=== PATIENT | male | born 1990 | race Caucasian/White ===

== ENCOUNTER 2023-11-23 06:48 | Emergency (ER) | payer SELFPAY ==
[2023-11-23 06:55] VITALS: RESP 20; BMI 28.0
[2023-11-23 08:35] LABS: THROAT:GRP A STREP NOT DETECTED (NOTDETECTED)
[2023-11-23] MEDS ORDERED: DEXAMETHASONE SOD PHOSPHATE 10 MG/1 ML VIAL ONE (08:52)
[2023-11-23] MEDS ORDERED: ACETAMINOPHEN INJECTION 100 ML ONE (08:52)
[2023-11-23 09:05] LABS: BASO % 0.6 % (0-2.0); EOS % 0.8 % (0-4.5); HEMATOCRIT 49.8 % (35.4-49); HEMOGLOBIN 16.8 GM/dL (11.7-16.9); LYMPH % 11.1 % (8-40); MCH 28.1 pg (25.7-33.7); MCHC 33.8 g/dl (32.0-35.9); MEAN CELL VOLUME 83.3 fl (80-96); MEAN PLT VOLUME 8.8 fl (7.5-11.1); MONO % 8.9 % (3.8-10.2); NEUT % 78.6 % (42.8-82.8); PLATELET COUNT 260 10^3/uL (134-434); RBC 5.98 M/mm3 (4.00-5.60); RDW 13.6 % (11.9-15.9); WHITE BLOOD COUNT 13.8 K/mm3 (4.0-10.0)
[2023-11-23] MEDS: SODIUM CHLORIDE 0.9% 500 ML INFUS.BAG IV ONE (09:05)
[2023-11-23] MEDS: DEXAMETHASONE SOD PHOSPHATE 10 MG/1 ML VIAL IVPUSH ONE (09:05)
[2023-11-23] MEDS: ACETAMINOPHEN 1000 MG/100 ML BAG IVPB ONE (09:06)
[2023-11-23 09:09] LABS: INR 1.06 (0.83-1.09)
[2023-11-23 09:11] LABS: ACTIVATED PTT 28.2 SECONDS (25.2-36.5)
[2023-11-23 09:12] LABS: POTASSIUM 4.4 mmol/L (3.5-5.1)
[2023-11-23 09:14] LABS: CALCIUM 9.3 mg/dL (8.5-10.1)
[2023-11-23 09:15] LABS: ALBUMIN 3.9 g/dl (3.4-5.0)
[2023-11-23 09:18] LABS: CREATININE 0.8 mg/dL (0.55-1.3)
[2023-11-23 09:20] LABS: BILIRUBIN,TOTAL 0.6 mg/dL (0.2-1)
[2023-11-23 10:51] VITALS: BP 129/83; PULSE 77; TEMP 97.4
== END 2023-11-23 11:49 | disposition home or self-care (01) ==
LOC: JER 06:48 → JERFT 06:48 → JER 11:49
PROC: 3E033NZ Introduction of Analgesics, Hypnotics, Sedatives into Peripheral Vein, Percutaneous Approach (ICD-10-PCS; principal; 2023-11-23)
PROC: 3E033GC Introduction of Other Therapeutic Substance into Peripheral Vein, Percutaneous Approach (ICD-10-PCS; 2023-11-23)
DX: J02.9 Acute pharyngitis, unspecified (principal); R07.89 Other chest pain; R05.9 Cough, unspecified; Z20.822 Contact with and (suspected) exposure to COVID-19
CPT/HCPCS: 0241U-QW; 36415; 71046-TC-FY; 71275-TC; 80053; 84484; 85025; 85379; 85610; 85730; 86850; 86900; 86901; 87651; 93005; 93010; 99285-25; J0131; J1100; Q9967